=== PATIENT | female | born 1985 | race Caucasian/White ===

== ENCOUNTER 2022-05-11 06:24 | Inpatient (IN) ==
[2022-05-11] MEDS ORDERED: PITOCIN ONE ×2 (06:45→17:22)
[2022-05-11] MEDS ORDERED: D5 1/2 NS 1,000 ML 1,000 ML IV ONE (06:45)
[2022-05-11] MEDS ORDERED: D5 1/2 NS 1,000 mL + PITOCIN 20 UNITS/L IV 20 UNITS/1,000 ML BAG IV ONE (06:46)
[2022-05-11] MEDS ORDERED: BETADINE SOLN ONE (06:46)
[2022-05-11] MEDS ORDERED: D5 LR + PITOCIN 10 UNITS/L 10 UNITS/1,000 ML BAG IV ONE (06:46)
[2022-05-11] MEDS ORDERED: NS 1,000 ML IV 1,000 ML ONE (06:46)
[2022-05-11] MEDS: NS 1,000 ML IV 1,000 ML IV SCH (07:00)
[2022-05-11] MEDS ORDERED: D5 LR + PITOCIN 10 UNITS/L 10 UNITS/1,000 ML BAG IV PRN (07:15)
[2022-05-11] MEDS ORDERED: REGLAN INJ 10 MG VIAL IVP PRN ×2 (07:49→18:22)
[2022-05-11] MEDS ORDERED: PITOCIN IVP ONE (07:49)
[2022-05-11] MEDS ORDERED: PHENERGAN INJ 25 MG IM PRN ×2 (07:49→18:22)
[2022-05-11] MEDS ORDERED: STADOL INJ IVP PRN (07:51)
[2022-05-11] MEDS ORDERED: LR 1,000 ML IV 1,000 ML IV ONE ×2 (11:41→16:34)
[2022-05-11] MEDS ORDERED: FENTANYL VIAL INJ 100 mcg ONE (11:48)
[2022-05-11] MEDS ORDERED: NAROPIN EPIDURAL 0.2% 100 ML ONE (11:48)
[2022-05-11] MEDS ORDERED: XYLOCAINE 1 % (PLAIN) ONE (12:11)
[2022-05-11] MEDS ORDERED: ANCEF VIAL 1 GRAM ONE (16:29)
[2022-05-11] MEDS ORDERED: NS 100 ML IV 100 ML ONE (16:29)
[2022-05-11] MEDS ORDERED: LIDOCAINE 2%-EPI 1:200,000 ONE (16:44)
[2022-05-11] MEDS ORDERED: DILAUDID INJ ONE ×2 (16:46→18:17)
[2022-05-11] MEDS ORDERED: VERSED ONE (16:47)
[2022-05-11] MEDS ORDERED: XYLOCAINE 2 % (PLAIN) ONE (16:52)
[2022-05-11] MEDS ORDERED: MARCAINE SPINAL ONE (16:52)
[2022-05-11] MEDS ORDERED: MYLICON TAB 80 MG CHEW PO PRN (18:03)
[2022-05-11] MEDS ORDERED: ADACEL or BOOSTRIX TDaP VACCINE IM ONE (18:03)
[2022-05-11] MEDS ORDERED: ZOFRAN TAB 4 MG PO PRN (18:03)
[2022-05-11] MEDS ORDERED: PERCOCET TAB 5/325 MG PO PRN (18:03)
[2022-05-11] MEDS ORDERED: PHENERGAN TAB 25 MG PO PRN (18:03)
[2022-05-11] MEDS ORDERED: ZOFRAN INJ 4 MG VIAL IVP PRN (18:22)
[2022-05-11] MEDS ORDERED: BENADRYL INJ 50 MG VIAL IVP PRN (18:22)
[2022-05-11] MEDS ORDERED: BARHEMSYS INJ IVP PRN (18:22)
[2022-05-11] MEDS ORDERED: DILAUDID INJ IVP PRN (18:22)
[2022-05-11] MEDS: TORADOL 30 MG VIAL IVP SCH (21:07)
[2022-05-12] MEDS: NS 1,000 ML IV 1,000 ML IV SCH ×2 (00:38→12:49)
[2022-05-12] MEDS: TORADOL 30 MG VIAL IVP SCH ×3 (01:30→12:49)
[2022-05-12 05:01] LABS: HEMATOCRIT 29.1 % (36.0-47.0); HEMOGLOBIN 9.5 g/dL (12.0-16.0)
--- NOTE | 2022-05-12 08:32 | NOTE.PROBC ---
Progress Note OB-C/S Subjective Data Subjective: No complaints, decreased lochia. Tolerating regular diet. No N/V. Ambulating well. Tate draining well. Pain under good control with toradol. Objective Data Result Diagrams: 05/12/22 04:37 Objective Data: CV= RRR no MRG Lungs=CTA Bilaterally Abd=(+) BS, soft, ND, appropriately tender near incision. Bandage removed. Incision clean/dry/intact, no erythema, no bleeding, no discharge. Dermabond/ Stitches intact. Fundus firm/NT/ at 3 cm below umbilicus. Ext= No edema, NT, No Cords. Graduated Compression Stockings/Sequential Compression Devices Bilaterally. Assessment Assessment: doing well and asking for an early d/c Plan (1) deliv NOS-unsp: (2) Gestational diabetes mellitus: (3) Gestational hypertension: Plan: The pt is doing well and requesting an early d/c for when the infant is 24 hours old.
[2022-05-12] MEDS ORDERED: PRENATAL PLUS PO SCH (09:00)
[2022-05-12 13:26] VITALS: BP 176/86
[2022-05-12] MEDS ORDERED: TORADOL 30 MG VIAL IM PRN (18:09)
[2022-05-12] MEDS ORDERED: TORADOL 30 MG VIAL IVP PRN (18:09)
[2022-05-12] MEDS ORDERED: MOTRIN TAB 800 MG PO ONE (18:11)
[2022-05-16] MEDS ORDERED: MOTRIN TAB 800 MG PO PRN (18:08)
== END 2022-05-12 19:20 | disposition home or self-care (01) | DRG 788 ==
LOC: LD 06:24 → MED/SURG 19:27
PROVIDERS: ADMIT Obstetrics & Gynecology; ATTEND Obstetrics & Gynecology
DX: O13.3 Gestational [pregnancy-induced] hypertension without significant proteinuria, third trimester; O62.0 Primary inadequate contractions; Z37.0 Single live birth; O24.415 Gestational diabetes mellitus in pregnancy, controlled by oral hypoglycemic drugs; O33.8 Maternal care for disproportion of other origin; Z3A.37 37 weeks gestation of pregnancy